=== PATIENT | female | born 1940 | race Caucasian/White ===

== ENCOUNTER 2019-11-08 17:12 | Inpatient (IN) | payer MEDICARE, BC ==
[~2019-11-08] VITALS: Ht 160 cm; Wt 75.0 kg
[2019-11-08 17:38] LABS: BASOPHILS % (AUTO) 0.3 % (0-1); EOSINOPHILS # (AUTO) 0.1 X10'3 (0-0.9); EOSINOPHILS % (AUTO) 1.7 % (0-6); HEMATOCRIT 38.3 % (35.0-45.0); HEMOGLOBIN 12.7 g/dl (12.0-16.0); LYMPHOCYTES # (AUTO) 2.1 X10'3 (1.1-4.8); LYMPHOCYTES % (AUTO) 37.1 % (21-51); MEAN CORPUSCULAR HEMOGLOBIN 30.2 PG (27.0-31.0); MEAN CORPUSCULAR HGB CONC 33.2 g/dL (33.0-36.5); MEAN CORPUSCULAR VOLUME 90.8 FL (78-98); MEAN PLATELET VOLUME 9.1 FL (7.4-10.4); MONOCYTES # (AUTO) 0.5 X10'3 (0-0.9); MONOCYTES % (AUTO) 8.2 % (2-12); NEUTROPHILS # (AUTO) 2.9 X10'3 (1.8-7.7); NEUTROPHILS % (AUTO) 52.7 % (42-75); PLATELET COUNT 140 X10'3 (140-440); RED BLOOD COUNT 4.22 X10'6 (4.20-5.60); RED CELL DISTRIBUTION WIDTH 13.5 % (11.5-14.5); WHITE BLOOD COUNT 5.5 X10'3 (4.5-11.0)
[2019-11-08 17:49] LABS: ALANINE AMINOTRANSFERASE 15 U/L (12-78); ALBUMIN 3.7 G/DL (3.4-5.0); ALBUMIN/GLOBULIN RATIO 1.2 (1.1-1.5); ALKALINE PHOSPHATASE 96 IU/L (46-116); ANION GAP 9 (8-16); ASPARTATE AMINO TRANSFERASE 28 U/L (10-37); BILIRUBIN,TOTAL 0.5 MG/DL (0.1-1.0); BLOOD UREA NITROGEN 54 MG/DL (7-18); BUN/CREATININE RATIO 24.9 (6.6-38.0); CALCIUM 9.8 MG/DL (8.5-10.1); CHLORIDE 98 MMOL/L (99-107); CREATININE 2.17 MG/DL (0.40-0.90); GLUCOSE 87 MG/DL (70-104); POTASSIUM 5.6 MMOL/L (3.5-5.1); SODIUM 130 MMOL/L (135-145); TOTAL CARBON DIOXIDE 22.6 MMOL/L (24-32); TOTAL PROTEIN 6.8 G/DL (6.4-8.2); eGFR 22 ML/MIN
[2019-11-08] MEDS ORDERED: CITA20TA28 PO (19:52)
[2019-11-08] MEDS ORDERED: PROP60TA19 PO (19:52)
[2019-11-08] MEDS ORDERED: LOVA20TA2 PO (19:52)
[2019-11-08] MEDS ORDERED: LISI-600 PO (19:52)
[2019-11-08] MEDS ORDERED: INSU100I31 SQ (19:52)
[2019-11-08] MEDS ORDERED: GABA-530 PO (19:52)
--- NOTE | 2019-11-08 20:48 | NUR ---
HOSPITALIST AT BEDSIDE FOR ADMISSION
[2019-11-08] MEDS ORDERED: mag hydrox/Alum hydrox/simeth 30ml oral suspension PO PRN (21:05)
[2019-11-08] MEDS ORDERED: potassium CL 10mEq/100ml bag 100 ML IV PRN ×2 (21:05)
[2019-11-08] MEDS ORDERED: magnesium hydroxide 30ml (MOM) UD suspension PO PRN (21:05)
[2019-11-08] MEDS ORDERED: ondansetron/PF 4mg/2ml inj IV PRN (21:05)
[2019-11-08] MEDS ORDERED: acetaminophen 325mg tablet PO PRN (21:05)
[2019-11-08] MEDS ORDERED: potassium Cl 20 mEq SR tablet PO PRN ×2 (21:05)
[2019-11-08] MEDS ORDERED: dextrose ORAL solution 15 GM/59 ML bottle PO PRN ×2 (21:15)
[2019-11-08] MEDS ORDERED: MESSAGE TO PHARMACY PO ONE (21:15)
[2019-11-08] MEDS ORDERED: dextrose 50%-water 50ml dispensing syringe IV PRN ×2 (21:15)
[2019-11-08] MEDS ORDERED: regadenoson 0.4mg/5ml syringe IV PRN (21:15)
[2019-11-08] MEDS ORDERED: aminophylline 250mg/10ml inj. IV PRN (21:15)
[2019-11-08] MEDS ORDERED: nitroGLYCERIN 0.4mg SUBLingual tab SL PRN (21:15)
[2019-11-08] MEDS ORDERED: metoprolol tartrate 1mg/ml inj IV PRN (21:15)
[2019-11-08] MEDS ORDERED: glucagon, human recombinant 1mg kit SUBCUT PRN (21:15)
[2019-11-08] MEDS ORDERED: insulin Lispro (HumaLOG) vial - multi-dose SQ SCH (21:15)
--- NOTE | 2019-11-08 21:36 | NUR ---
Patient in room ED 16. I have received report from JOANN Levy and had the opportunity to ask questions and assume patient care.
[2019-11-08 22:00] VITALS: BP 147/70
[2019-11-08] MEDS: nitroGLYCERIN 0.1mg/hour patch TD SCH (22:38)
[2019-11-08] MEDS: gabapentin 100mg capsule PO SCH (23:11)
[2019-11-09] VITALS (11 sets, daily range): BP systolic 89–144; BP diastolic 49–60
--- NOTE | 2019-11-09 06:10 | NUR ---
Patient in room PCU 3014. I have received report from Gin DAVID and had the opportunity to ask questions and assume patient care.
[2019-11-09 06:13] LABS: ALANINE AMINOTRANSFERASE 19 U/L (12-78); ALBUMIN 3.2 G/DL (3.4-5.0); ALBUMIN/GLOBULIN RATIO 1.1 (1.1-1.5); ALKALINE PHOSPHATASE 84 IU/L (46-116); ANION GAP 10 (8-16); ASPARTATE AMINO TRANSFERASE 27 U/L (10-37); BILIRUBIN,TOTAL 0.3 MG/DL (0.1-1.0); BLOOD UREA NITROGEN 54 MG/DL (7-18); CALCIUM 9.5 MG/DL (8.5-10.1); CHLORIDE 102 MMOL/L (99-107); CREATININE 1.86 MG/DL (0.40-0.90); GLUCOSE 85 MG/DL (70-104); POTASSIUM 4.8 MMOL/L (3.5-5.1); SODIUM 133 MMOL/L (135-145); TOTAL CARBON DIOXIDE 20.9 MMOL/L (24-32); TOTAL PROTEIN 6.2 G/DL (6.4-8.2); eGFR 26 ML/MIN
--- NOTE | 2019-11-09 06:32 | NUR ---
Problems reprioritized. Patient report given, questions answered & plan of care reviewed with JOANN Field.
[2019-11-09] MEDS: gabapentin 100mg capsule PO SCH ×2 (07:55→15:51)
[2019-11-09] MEDS: propranolol 10mg tablet PO SCH ×2 (08:00→13:00)
[2019-11-09] MEDS ORDERED: citalopram 20mg tablet PO SCH (08:00)
[2019-11-09] MEDS ORDERED: heparin, porcine 5000 units/ml vial SQ SCH (08:00)
[2019-11-09] MEDS ORDERED: K and/or MAG REPLACEMENT MC SCH (08:00)
[2019-11-09] MEDS ORDERED: atorvastatin 10mg tablet PO SCH (08:00)
[2019-11-09] MEDS: nitroGLYCERIN 0.1mg/hour patch TD SCH (08:00)
[2019-11-09] MEDS ORDERED: PROP10TA10 PO (12:09)
[2019-11-09] MEDS ORDERED: LISI10TA4 PO (12:09)
--- NOTE | 2019-11-09 18:34 | NUR ---
Problems reprioritized. Patient report given, questions answered & plan of care reviewed with Sabina DAVID.
--- NOTE | 2019-11-09 20:00 | NUR ---
discharge instructions gone over with patient--verbalized understanding--left with daughter with belongings via wc, accompanied by tech--iv removed before discharge and tele removed
[2019-11-09] MEDS ORDERED: insulin glargine (Lantus) pen - multi-dose SQ SCH (21:00)
--- NOTE | 2019-11-13 16:26 | NUR ---
Case Management DC follow up: spoke to pt via telephone. s/p: cp Reports: "doing fine, daughter here with me". Denies: acute/continuous/worsening cp, SOB, resp distress, vertigo, syncope,weakness, blurry vision, N/V, HERNANDEZ, emergent general pain, abd tenderness/distension, fever. Compliant w/aftercare, statying hydrated, keeping nephrology appts as scheduled. Verbalizes understanding of s/s that warrant 9-11/ER visit for evaluation. Verbalizes understanding of new Rx: change in dose, lower Lisinopril, Propranolol and why prescribed, resumes current Rx, taking as ordered, no ase r/t polypharmacy. Acknowledges need to schedule/keep follow up appts w/ PCP/[facility] 11/13/19. Just saw PCP and stated everything okay. Needs met, questions answered at DC, no further questions at this time.
== END 2019-11-09 20:02 | disposition home or self-care (01) | DRG 313 ==
LOC: ER 17:13 → ED HOLD 21:05 → UNDOADMIN 21:08 → ED HOLD 21:08 → PCU 3S 21:43
PROVIDERS: ADMIT Internal Medicine; ATTEND Internal Medicine
PROC: 4A02XM4 Measurement of Cardiac Total Activity, External Approach (ICD-10-PCS; principal; 2019-11-09)
PROC: 3E073KZ Introduction of Other Diagnostic Substance into Coronary Artery, Percutaneous Approach (ICD-10-PCS; 2019-11-09)
DX: R07.89 Other chest pain (principal); E11.22 Type 2 diabetes mellitus with diabetic chronic kidney disease; E78.00 Pure hypercholesterolemia, unspecified; E87.5 Hyperkalemia; F41.8 Other specified anxiety disorders; G25.0 Essential tremor; E03.9 Hypothyroidism, unspecified; I12.9 Hypertensive chronic kidney disease with stage 1 through stage 4 chronic kidney disease, or unspecified chronic kidney disease; R00.1 Bradycardia, unspecified; I25.10 Atherosclerotic heart disease of native coronary artery without angina pectoris; N18.3 Chronic kidney disease, stage 3 (moderate); T44.7X5A Adverse effect of beta-adrenoreceptor antagonists, initial encounter; Z90.710 Acquired absence of both cervix and uterus; Y92.89 Other specified places as the place of occurrence of the external cause; Z79.899 Other long term (current) drug therapy
CPT/HCPCS: 36415; 71045; 78452; 80053; 82948; 83036; 84484; 85025; 87081; 93005; 93017; 99285; A9500; G0378; J1644; J1815; J2785